=== PATIENT | female | born 1965 | race Caucasian/White ===

== ENCOUNTER → 2016-07-29 | Outpatient (CLI) | payer OTHER ==
[~2016-07-29] MED LIST: AMOXICILLIN 50500 MG PO; CORTISPORIN OTI10 M1 OT; GLUTAMINE PO; MULTIPLE VITAMI1 TAB PO; NO HOME MEDICATIONS; PEPCID 20MG TAB20 MG PO; TOPROL XL 25MG25 MG PO; VIT B
== END ==
LOC: MC.RAD 15:57
DX: Z12.31 Encounter for screening mammogram for malignant neoplasm of breast (principal)

== ENCOUNTER → 2017-08-28 | Outpatient (CLI) | payer BC | LOC: MC.RAD 14:20 | DX: Z12.31 Encounter for screening mammogram for malignant neoplasm of breast (principal) ==

== ENCOUNTER 2017-09-30 15:37 | Outpatient (RCR) | payer OTHER | END 2017-10-02 09:33 | LOC: WSOH 15:37 | DX: S60.041A Contusion of right ring finger without damage to nail, initial encounter (principal); S61.314A Laceration without foreign body of right ring finger with damage to nail, initial encounter; W23.1XXA Caught, crushed, jammed, or pinched between stationary objects, initial encounter; Y99.0 Civilian activity done for income or pay; Z88.5 Allergy status to narcotic agent; Z87.891 Personal history of nicotine dependence ==

== ENCOUNTER 2018-01-30 16:26 | Emergency (ER) | payer BC ==
[~2018-01-30] VITALS: Ht 165.1 cm; Wt 80.9 kg
[2018-01-30 16:29] VITALS: BP 119/74; PULSE 101; TEMP 98.3
[2018-01-30] MEDS ORDERED: WELLBUTRIN SR150 M1 PO (17:02)
[2018-01-30] MEDS ORDERED: SYNTHROID0.112 MG/T PO (17:02)
[2018-01-30] MEDS ORDERED: AMOXICILLIN 50500 MG PO (17:27)
[2018-01-30] MEDS ORDERED: NORCO 325 MG-51 TAB PO (17:27)
== END 2018-01-30 17:45 | disposition home or self-care (01) ==
LOC: COL.ER 16:26
DX: K02.9 Dental caries, unspecified (principal); E03.9 Hypothyroidism, unspecified; F32.9 Major depressive disorder, single episode, unspecified; Z87.891 Personal history of nicotine dependence; Z88.5 Allergy status to narcotic agent

== ENCOUNTER 2018-04-14 18:19 | Emergency (ER) | payer BC ==
[~2018-04-14] VITALS: Ht 165.1 cm; Wt 79.5 kg
[~2018-04-14 18:19] MED LIST changes: +NORCO 325 MG-51 TAB PO; +SYNTHROID0.112 MG/T PO; +WELLBUTRIN SR150 M1 PO
[2018-04-14] MEDS ORDERED: NORCO 325 MG-51 TAB PO (19:46)
[2018-04-14] MEDS ORDERED: CRUTCHES MC (19:47)
[2018-04-14 20:48] VITALS: BP 126/79; PULSE 90
== END 2018-04-14 20:49 | disposition home or self-care (01) ==
LOC: COL.ER 18:19
DX: S82.302A Unspecified fracture of lower end of left tibia, initial encounter for closed fracture (principal); S82.832A Other fracture of upper and lower end of left fibula, initial encounter for closed fracture; E03.9 Hypothyroidism, unspecified; F32.9 Major depressive disorder, single episode, unspecified; V80.010A Animal-rider injured by fall from or being thrown from horse in noncollision accident, initial encounter; Y93.52 Activity, horseback riding; Y92.009 Unspecified place in unspecified non-institutional (private) residence as the place of occurrence of the external cause
CPT/HCPCS: J1170; J2405; J7030; L1846; Q4041

== ENCOUNTER → 2018-05-31 | Outpatient (CLI) | payer BC ==
[~2018-05-31] MED LIST changes: +CRUTCHES MC
== END ==
LOC: COL.VAS 12:33
DX: I82.4Z2 Acute embolism and thrombosis of unspecified deep veins of left distal lower extremity (principal)

== ENCOUNTER → 2018-10-28 | Outpatient (CLI) | payer BC | LOC: MC.RAD 15:53 | DX: Z12.31 Encounter for screening mammogram for malignant neoplasm of breast (principal) ==

== ENCOUNTER → 2021-02-11 | Outpatient (CLI) | payer BC ==
[~2021-02-11] MED LIST changes: +CLARITIN 1010 MG/TAB PO; +FLONASE NASAL S16 GM NS; +MOTRIN 600600 MG/TAB PO; +MULTIVITAMIN FO1 CAP PO
== END ==
LOC: MC.RAD 13:00
DX: R92.0 Mammographic microcalcification found on diagnostic imaging of breast (principal)

== ENCOUNTER → 2021-02-13 | Outpatient (CLI) | payer BC | LOC: MC.RAD 06:55 | DX: R92.0 Mammographic microcalcification found on diagnostic imaging of breast (principal); Z98.82 Breast implant status; Z98.890 Other specified postprocedural states ==

== ENCOUNTER → 2021-03-04 | Outpatient (CLI) | payer BC | LOC: MC.RAD 12:54 | DX: D05.12 Intraductal carcinoma in situ of left breast (principal) | CPT/HCPCS: A9541 ==

== ENCOUNTER 2021-03-05 07:12 | Day surgery (SDC) | payer BC ==
[~2021-03-05] VITALS: Ht 165.1 cm; Wt 74.4 kg
[~2021-03-05 07:12] MED LIST changes: -CLARITIN 1010 MG/TAB PO; -FLONASE NASAL S16 GM NS; -MOTRIN 600600 MG/TAB PO; -MULTIVITAMIN FO1 CAP PO
[2021-03-05] MEDS ORDERED: CLARITIN 1010 MG/TAB PO (07:42)
[2021-03-05] MEDS ORDERED: FLONASE NASAL S16 GM NS (07:42)
[2021-03-05] MEDS ORDERED: MULTIVITAMIN FO1 CAP PO (07:43)
[2021-03-05 08:24] VITALS: BP 109/51; PULSE 72; TEMP 97.5
[2021-03-05] MEDS ORDERED: NORCO 325 MG-51 TAB PO (12:56)
[2021-03-05] MEDS ORDERED: MOTRIN 600600 MG/TAB PO (12:56)
[2021-03-05 13:05] VITALS: BP 115/63; PULSE 67; TEMP 97.4
[2021-03-05 13:20] VITALS: BP 108/52; PULSE 72
[2021-03-05 13:35] VITALS: BP 111/68; PULSE 74
[2021-03-05 13:36] VITALS: BP 115/63; PULSE 68
== END 2021-03-05 13:55 | disposition home or self-care (01) ==
LOC: SDCO 07:12
DX: D05.12 Intraductal carcinoma in situ of left breast (principal); E03.9 Hypothyroidism, unspecified; F39 Unspecified mood [affective] disorder; Z87.891 Personal history of nicotine dependence; Z86.16 Personal history of COVID-19; Z79.890 Hormone replacement therapy; Z79.899 Other long term (current) drug therapy; Z80.1 Family history of malignant neoplasm of trachea, bronchus and lung
CPT/HCPCS: A4648; J0690; J1100; J1885; J2250; J2405; J2704; J2795; J3010; J7120